=== PATIENT | male | born 1990 | race Caucasian/White ===

== ENCOUNTER 2018-01-01 17:24 | Emergency (ER) | payer MEDICAID ==
[2018-01-01] MEDS ORDERED: KETOROLAC TROMETHAMINE 60 MG/2 ML SDV IM ONE (17:42)
--- NOTE | 2018-01-01 17:44 | ER Document Report ---
ED Medical Screen (RME) - General Chief Complaint: Abdominal Pain Stated Complaint: STOMACH/BACK PAIN Time Seen by Provider: 01/01/18 17:34 Information source: Patient, Relative - Notes: 27-year-old male with a history of right flank pain starting a few hours ago that has since progressed to right lower quadrant pain and now penile pain. Patient states last time he urinated he saw some blood and a split stream. Patient denies any difficulty urinating simply says that everything hurts on his right-hand side. Admits to vomiting but denies blood in his vomit, denies fevers. Admits diaphoresis due to the pain. No history of kidney stones. TRAVEL OUTSIDE OF THE [place] IN LAST 30 DAYS: No - Related Data Allergies/Adverse Reactions: cephalexin [From Keflex] Allergy (Verified 01/01/18 17:24) Penicillins Allergy (Verified 01/01/18 17:24) Sulfa (Sulfonamide Antibiotics) Allergy (Verified 01/01/18 17:24) sulfamethoxazole [From Bactrim] Allergy (Verified 01/01/18 17:24) trimethoprim [From Bactrim] Allergy (Verified 01/01/18 17:24) seafood Allergy (Uncoded 01/01/18 17:24) Past Medical History - General Information source: Patient - Social History Chew tobacco use (# tins/day): No Frequency of alcohol use: None Drug Abuse: None Renal/ Medical History: Denies: Hx Peritoneal Dialysis Psychiatric Medical History: Reports: Hx Bipolar Disorder, Hx Depression Past Surgical History: Reports: Hx Cholecystectomy Review of Systems - Review of Systems Constitutional: See HPI, Diaphoresis Gastrointestinal: See HPI Genitourinary: See HPI Male Genitourinary: See HPI Physical Exam - Vital signs Vitals: Temp Pulse Resp BP Pulse Ox 98.4 F 70 20 131/65 H 98 01/01/18 17:27 01/01/18 17:27 01/01/18 17:27 01/01/18 17:27 01/01/18 17:27 Interpretation: Normal - General General appearance: Alert, Anxious In distress: Moderate Notes: Appears uncomfortable, clutching his groin and the right side of his back. - HEENT Head: Normocephalic, Atraumatic - Respiratory Respiratory status: No respiratory distress - Back Notes: No CVA tenderness to percussion, no rash. Course - Vital Signs Vital signs: Temp Pulse Resp BP Pulse Ox 98.4 F 70 20 131/65 H 98 01/01/18 17:27 01/01/18 17:27 01/01/18 17:27 01/01/18 17:27 01/01/18 17:27
[2018-01-01 18:30] LABS: ABSOLUTE LYMPHOCYTES (AUTO) 2.4 10^3/uL (0.5-4.7); ABSOLUTE MONOCYTES (AUTO) 0.3 10^3/uL (0.1-1.4); ABSOLUTE NEUT (AUTO) 4.2 10^3/uL (1.7-8.2); BASOPHILS % (AUTO) 0.7 % (0-2); EOSINOPHILS % (AUTO) 0.3 % (0-6); HEMATOCRIT 47.2 % (37.9-51.0); HEMOGLOBIN 16.3 g/dL (13.5-17.0); LYMPHOCYTES % (AUTO) 34.5 % (13-45); MEAN CORPUSCULAR HEMOGLOBIN 28.9 pg (27.0-33.4); MEAN CORPUSCULAR HGB CONC 34.5 g/dL (32.0-36.0); MEAN CORPUSCULAR VOLUME 84 fl (80-97); MONOCYTES % (AUTO) 3.7 % (3-13); PLATELET COUNT 202 10^3/uL (150-450); RED BLOOD COUNT 5.64 10^6/uL (4.35-5.55); RED CELL DISTRIBUTION WIDTH 13.5 % (11.5-14.0); SEGMENTED NEUTROPHILS % (AUTO) 60.8 % (42-78); TOTAL CELLS COUNTED % (AUTO) 100 %
--- NOTE | 2018-01-01 18:37 | RADIOLOGY REPORT (SQ) ---
EXAM DESCRIPTION: CT LTD RENAL STONE PROTOCOL ON COMPLETED DATE/TIME: 01/01/2018 6:22 pm REASON FOR STUDY: right flank pain, possible stone COMPARISON: 06/20/2017 TECHNIQUE: CT scan of the abdomen and pelvis performed without intravenous or oral contrast. Images reviewed with lung, soft tissue, and bone windows. Reconstructed coronal and sagittal MPR images revi ewed. All images stored on PACS. All CT scanners at this facility use dose modulation, iterative reconstruction, and/or weight based d osing when appropriate to reduce radiation dose to as low as reasonably achievable (ALARA). [facility]: Dose Right [facility]: CareDose [facility]: Dose Right [facility]: Teradose 4D [facility]: Smart Zapcoder RADIATION DOSE: CT Rad equipment meets quality standard of care and radiation dose reduction techniq ues were employed. CTDIvol: 18.4 mGy. DLP: 1253 mGy-cm.mGy. LIMITATIONS: None. FINDINGS: LOWER CHEST: No significant findings. No nodules or infiltrates. NON-CONTRASTED LIVER, SPLEEN, ADRENALS: Evaluation limited by lack of IV contrast. No identified sign ificant masses. PANCREAS: No masses. No peripancreatic inflammatory changes. GALLBLADDER: Surgically absent. RIGHT KIDNEY AND URETER: No suspicious masses. Assessment limited by lack of IV contrast. No signif icant calcifications. No hydronephrosis or hydroureter. LEFT KIDNEY AND URETER: No suspicious masses. Assessment limited by lack of IV contrast. No signifi cant calcifications. No hydronephrosis or hydroureter. AORTA AND RETROPERITONEUM: No aneurysm. No retroperitoneal masses or adenopathy. BOWEL AND PERITONEAL CAVITY: No obvious masses or inflammatory changes. No free fluid. APPENDIX: Normal. PELVIS, BLADDER, AND ABDOMINAL WALL:No abnormal masses. No free fluid. The bladder is decompressed. BONES: No significant findings. OTHER: No other significant finding. IMPRESSION: No evidence of urolithiasis. No findings to correlate to the patient's reported right f lank pain. COMMENT: Quality ID # [id number]: Final reports with documentation of one or more dose reduction techniques (e.g., Automated exposure control, adjustment of the mA and/or kV according to patient size, use of iterative reconstruction technique) TECHNICAL DOCUMENTATION: JOB ID: [id number] [email or web address]- All Rights Reserved Reading location - IP/workstation name: [email or web address]
[2018-01-01 18:38] LABS: APPEARANCE,URINE SLIGHTLY-CLOUDY; BILIRUBIN,URINE NEGATIVE (NEGATIVE); COLOR,URINE YELLOW; GLUCOSE, URINE NEGATIVE (NEGATIVE); KETONES,URINE NEGATIVE (NEGATIVE); LEUKOCYTE ESTERASE,URINE NEGATIVE (NEGATIVE); NITRITE,URINE NEGATIVE (NEGATIVE); PROTEIN,URINE 30 mg/dL (NEGATIVE); URINE SPECIFIC GRAVITY 1.021
[2018-01-01 18:47] LABS: ANION GAP 15 (5-19); BLOOD UREA NITROGEN 14 mg/dL (7-20); CALCIUM 9.5 mg/dL (8.4-10.2); CARBON DIOXIDE 26 mmol/L (22-30); CHLORIDE 105 mmol/L (98-107); GLUCOSE 132 mg/dL (75-110); POTASSIUM 3.7 mmol/L (3.6-5.0)
--- NOTE | 2018-01-01 19:00 | ER Document Report ---
ED General - General Chief Complaint: Abdominal Pain Stated Complaint: STOMACH/BACK PAIN Time Seen by Provider: 01/01/18 17:34 Notes: 27-year-old male with a history of sharp stabbing right flank pain starting a few hours ago that has since progressed to right lower quadrant pain and now penile pain. Patient states last time he urinated he saw some blood and a split stream. Patient denies any difficulty urinating simply says that everything hurts on his right-hand side. Admits to vomiting but denies blood in his vomit, denies fevers. Admits diaphoresis due to the pain. No history of kidney stones. TRAVEL OUTSIDE OF THE [place] IN LAST 30 DAYS: No - Related Data Allergies/Adverse Reactions: cephalexin [From Keflex] Allergy (Verified 01/01/18 17:24) Penicillins Allergy (Verified 01/01/18 17:24) Sulfa (Sulfonamide Antibiotics) Allergy (Verified 01/01/18 17:24) sulfamethoxazole [From Bactrim] Allergy (Verified 01/01/18 17:24) trimethoprim [From Bactrim] Allergy (Verified 01/01/18 17:24) seafood Allergy (Uncoded 01/01/18 17:24) Past Medical History - General Information source: Patient - Social History Smoking Status: Never Smoker Chew tobacco use (# tins/day): No Frequency of alcohol use: None Drug Abuse: None Family History: Reviewed & Not Pertinent Patient has suicidal ideation: No Patient has homicidal ideation: No Renal/ Medical History: Denies: Hx Peritoneal Dialysis Psychiatric Medical History: Reports: Hx Bipolar Disorder, Hx Depression Past Surgical History: Reports: Hx Cholecystectomy Review of Systems - Review of Systems Constitutional: See HPI, Diaphoresis EENT: No symptoms reported Cardiovascular: No symptoms reported Respiratory: No symptoms reported Gastrointestinal: See HPI, Abdominal pain, Nausea, Vomiting Genitourinary: See HPI, Dysuria, Flank pain, Hematuria Male Genitourinary: See HPI, Other - Penile pain. -: Yes All other systems reviewed and negative Physical Exam - Vital signs Vitals: Temp Pulse Resp BP Pulse Ox 98.4 F 70 20 131/65 H 98 01/01/18 17:27 01/01/18 17:27 01/01/18 17:27 01/01/18 17:27 01/01/18 17:27 Interpretation: Normal - Notes Notes: GENERAL: Alert, appears uncomfortable, rocking back and forth in wheelchair, clutching the right side of his groin, diaphoretic, eventually stands up and paces around the room. HEAD: Normocephalic, atraumatic EYES: Pupils equal, round and reactive to light, extraocular movements intact. ENT: Oral mucosa moist, tongue midline. NECK: Full range of motion, supple, trachea midline. LUNGS: Clear to auscultation bilaterally, no wheezes, rales or rhonchi, no respiratory distress. HEART: Regular rate and rhythm, no murmurs, gallops, rubs. ABDOMEN: Soft, nontender, nondistended, bowel sounds present in all 4 quadrants. EXTREMITIES: Moves all 4 extremities spontaneously, no edema, no cyanosis. NEUROLOGICAL: Alert and oriented x3, normal speech. PSYCH: Anxious and uncomfortable. SKIN: Warm, diaphoretic, normal turgor, no rashes or lesions noted, no vesicular rash on the right flank. : normal external male genitalia, no discharge, no lesions, no rashes. No tenderness to palpation. Testes descended bilaterally. Course - Re-evaluation Re-evalutation: 01/01/18 19:00 CBC unremarkable, BMP shows minimal abnormalities including slightly elevated sodium 146 and nonfasting glucose elevated at 132, urinalysis shows large blood and no evidence of infection. Of note on gross examination patient did urinate out a stone that was then visible in his urine specimen. This was not commented on by the laboratory. Stone appeared to be approximately 2 mm. Patient is now able to urinate without a split stream, denies any further difficulty with urination, states his pain is significantly improved with the Toradol. 01/01/18 20:05 Patient did end up needing a single dose of Vicodin while he was here. Gonorrhea and chlamydia is negative, discharged home. - Vital Signs Vital signs: Temp Pulse Resp BP Pulse Ox 97.6 F 84 16 126/75 H 98 01/01/18 19:48 01/01/18 19:48 01/01/18 19:48 01/01/18 19:48 01/01/18 19:48 - Laboratory Result Diagrams: 01/01/18 18:04 01/01/18 18:04 Laboratory results interpreted by me: 05/01/01/18 01/01/18 18:04 18:04 18:04 RBC 5.64 H Sodium 146.0 H Glucose 132 H Urine Protein 30 H Urine Blood LARGE H Urine Urobilinogen 2.0 H Discharge - Discharge Clinical Impression: Ureterolithiasis Condition: Stable Disposition: HOME, SELF-CARE Additional Instructions: Kidney Stone You are passing or have passed a kidney stone. These stones are usually due to increased calcium or uric acid concentrations in your urine. Stones within the kidney itself are not painful. The pain occurs as the stone leaves the kidney to pass down the long tube, called the ureter, leading to the bladder. Drink three or four quarts of fluids per day. You will be given pain medication (if needed) and urine strainers. Return if pain or vomiting become severe, if you develop a high fever, if you are unable to pass your urine, or if other unusual symptoms occur. You have already passed her stone. If your pain becomes much more severe please return. Your CAT scan did not show any stones. Your urine did not show any infections. Your other tests were negative. No infections or diseases were found. Prescriptions: Ibuprofen 800 mg PO TIDP #30 tablet Phenazopyridine HCl [Pyridium 200 mg Tablet] 200 mg PO TID #7 tablet
[2018-01-01] MEDS ORDERED: HYDROCODONE/ACETAMINOPHEN 5-325 MG TABLET PO ONE (19:11)
[2018-01-01 19:50] VITALS: BP 126/75
[2018-01-01] MEDS: HYDROCODONE/ACETAMINOPHEN 5-325 MG (6 TAB/ER DISP) PO PRN ×2 (19:58→19:59)
[2018-01-01 20:00] LABS: CHLAM PCR NOT DETECTED (NOT DETECT); GON PCR NOT DETECTED (NOT DETECT)
== END 2018-01-01 20:10 | disposition home or self-care (01) ==
LOC: ER 17:24
DX: N20.1 Calculus of ureter (principal); R31.0 Gross hematuria; R10.31 Right lower quadrant pain; R11.2 Nausea with vomiting, unspecified; N48.89 Other specified disorders of penis; R61 Generalized hyperhidrosis; Z88.1 Allergy status to other antibiotic agents; Z88.0 Allergy status to penicillin; Z88.2 Allergy status to sulfonamides; Z91.013 Allergy to seafood
CPT/HCPCS: 99284; 96372; 36415; 85025; 80048; 81001; 87491; 87591; 76380; J1885

== ENCOUNTER 2018-05-06 22:12 | Emergency (ER) | payer MEDICAID ==
--- NOTE | 2018-05-06 22:47 | ER Document Report ---
ED General - General Chief Complaint: Suicidal Ideation Stated Complaint: PSYCH EVAL Time Seen by Provider: 05/06/18 22:30 Mode of Arrival: Ambulatory Information source: Patient, Emergency Med Personnel, [facility] Records Notes: 28-year-old male with bipolar disorder, depression, hypothyroidism, degenerative disc disease presents with mobile crisis with suicidal ideation. Patient states that he recently lost his home and [place] and moved back here to live with his parents and has been undergoing a lot of stress at home. Patient has not been able to afford his normal medications which include Xanax, Abilify, Depakote, gabapentin, levothyroxine, Protonix, trazodone. Patient has a plan to cut himself or hang himself. Patient also admits to having homicidal ideation with wanting to hurt 1 of his siblings. He states where he is staying his parents call him "Faggot" and that the mother's boyfriend has been making passes at him.. He states that he has had prior similar symptoms. He has had previous attempts of suicide. TRAVEL OUTSIDE OF THE [place] IN LAST 30 DAYS: No - HPI Onset: Other Quality of pain: No pain Severity: None Associated symptoms: None Exacerbated by: Denies Relieved by: Denies Similar symptoms previously: Yes Recently seen / treated by doctor: No - Related Data Allergies/Adverse Reactions: cephalexin [From Keflex] Allergy (Verified 01/01/18 17:24) Penicillins Allergy (Verified 01/01/18 17:24) Sulfa (Sulfonamide Antibiotics) Allergy (Verified 01/01/18 17:24) sulfamethoxazole [From Bactrim] Allergy (Verified 01/01/18 17:24) trimethoprim [From Bactrim] Allergy (Verified 01/01/18 17:24) seafood Allergy (Uncoded 01/01/18 17:24) Past Medical History - General Information source: Patient, [facility] Records - Social History Smoking Status: Never Smoker Frequency of alcohol use: None Drug Abuse: None Lives with: Family, Spouse/Significant other Family History: Reviewed & Not Pertinent Patient has suicidal ideation: Yes Patient has homicidal ideation: Yes Renal/ Medical History: Denies: Hx Peritoneal Dialysis Psychiatric Medical History: Reports: Hx Bipolar Disorder, Hx Depression Past Surgical History: Reports: Hx Cholecystectomy Review of Systems - Review of Systems Notes: REVIEW OF SYSTEMS: CONSTITUTIONAL : Denies fever, chills, or sweats. Denies recent illness. Denies weight loss, recent hospitalizations. EENT: Denies visual changes, eye pain. Denies sore throat, oral lesions, difficulty swallowing. CARDIOVASCULAR: Denies chest pain. Denies palpitations. Denies lower extremity edema. RESPIRATORY: Denies cough. Denies shortness of breath, wheezing. GASTROINTESTINAL: Denies abdominal pain or distention. Denies nausea, vomiting , or diarrhea. Denies blood in vomitus, stools, or per rectum. Denies black, tarry stools. Denies constipation. GENITOURINARY: Denies difficulty urinating, painful urination, frequency, blood in urine, testicular pain or penile discharge. MUSCULOSKELETAL: Denies back or neck pain or stiffness. Denies joint pain or swelling. SKIN: Denies rash, lesions or sores. HEMATOLOGIC : Denies easy bruising or bleeding. LYMPHATIC: Denies swollen glands. NEUROLOGICAL: Denies confusion or altered mental status. Denies loss of consciousness. Denies dizziness or lightheadedness. Denies headache. Denies weakness or paralysis. Denies problems difficulty with ambulation, slurred speech. Denies sensory loss, numbness, or tingling. Denies seizures. PSYCHIATRIC: Admits to suicidal and homicidal. Denies any visual or auditory hallucination. Physical Exam - Vital signs Vitals: Temp Pulse Resp BP Pulse Ox 98.6 F 83 20 137/88 H 100 05/06/18 22:22 05/06/18 22:22 05/06/18 22:22 05/06/18 22:22 05/06/18 22:22 Interpretation: Hypertensive - Notes Notes: PHYSICAL EXAMINATION: GENERAL: Well-appearing, well-nourished and in no acute distress. HEAD: Atraumatic, normocephalic. EYES: Pupils equal round and reactive to light, extraocular movements intact, sclera anicteric, conjunctiva are normal. ENT: Nares patent, oropharynx clear without exudates. Moist mucous membranes. NECK: Normal range of motion, supple without lymphadenopathy LUNGS: Breath sounds clear to auscultation bilaterally and equal. No wheezes rales or rhonchi. HEART: Regular rate and rhythm without murmurs ABDOMEN: Soft, nontender, nondistended abdomen. No guarding, no rebound. No masses appreciated. Musculoskeletal: Normal range of motion, no pitting or edema. No cyanosis. NEUROLOGICAL: Cranial nerves grossly intact. Normal speech, normal gait. Normal sensory, motor exams PSYCH: normal affect. Admits to suicidal and homicidal SKIN: Warm, Dry, normal turgor, no rashes or lesions noted. Course - Re-evaluation Re-evalutation: Laboratory 05/06/18 05/06/18 05/06/18 23:02 23:02 23:02 WBC 8.5 RBC 5.66 H Hgb 16.4 Hct 47.2 MCV 84 MCH 29.0 MCHC 34.8 RDW 13.3 Plt Count 204 Seg Neutrophils % 68.8 Lymphocytes % 25.2 Monocytes % 5.2 Eosinophils % 0.2 Basophils % 0.6 Absolute Neutrophils 5.9 Absolute Lymphocytes 2.1 Absolute Monocytes 0.4 Absolute Eosinophils 0.0 Absolute Basophils 0.1 Sodium 141.9 Potassium 4.4 Chloride 103 Carbon Dioxide 28 Anion Gap 11 BUN 10 Creatinine 0.68 Est GFR ( Amer) > 60 Est GFR (Non-Af Amer) > 60 Glucose 83 Calcium 9.2 Total Bilirubin 1.0 Direct Bilirubin 0.3 Neonat Total Bilirubin Not Reportable Neonat Direct Bilirubin Not Reportable Neonat Indirect Bili Not Reportable AST 34 ALT 59 Alkaline Phosphatase 97 Total Protein 7.4 Albumin 4.5 Urine Color DARK YELLOW Urine Appearance CLEAR Urine pH 5.0 Ur Specific [place] 1.032 Urine Protein 30 H Urine Glucose (UA) NEGATIVE Urine Ketones NEGATIVE Urine Blood NEGATIVE Urine Nitrite NEGATIVE Urine Bilirubin NEGATIVE Urine Urobilinogen 2.0 H Ur Leukocyte Esterase NEGATIVE Urine WBC (Auto) 1 Urine RBC (Auto) 0 Urine Mucus (Auto) MANY Urine Ascorbic Acid NEGATIVE Salicylates < 1.0 L Urine Opiates Screen Urine Methadone Screen Acetaminophen < 10 L Ur Barbiturates Screen Ur Phencyclidine Scrn Ur Amphetamines Screen U Benzodiazepines Scrn Urine Cocaine Screen U Marijuana (THC) Screen Serum Alcohol < 10 05/06/18 23:02 WBC RBC Hgb Hct MCV MCH MCHC RDW Plt Count Seg Neutrophils % Lymphocytes % Monocytes % Eosinophils % Basophils % Absolute Neutrophils Absolute Lymphocytes Absolute Monocytes Absolute Eosinophils Absolute Basophils Sodium Potassium Chloride Carbon Dioxide Anion Gap BUN Creatinine Est GFR ( Amer) Est GFR (Non-Af Amer) Glucose Calcium Total Bilirubin Direct Bilirubin Neonat Total Bilirubin Neonat Direct Bilirubin Neonat Indirect Bili AST ALT Alkaline Phosphatase Total Protein Albumin Urine Color Urine Appearance Urine pH Ur Specific [place] Urine Protein Urine Glucose (UA) Urine Ketones Urine Blood Urine Nitrite Urine Bilirubin Urine Urobilinogen Ur Leukocyte Esterase Urine WBC (Auto) Urine RBC (Auto) Urine Mucus (Auto) Urine Ascorbic Acid Salicylates Urine Opiates Screen NEGATIVE Urine Methadone Screen NEGATIVE Acetaminophen Ur Barbiturates Screen NEGATIVE Ur Phencyclidine Scrn NEGATIVE Ur Amphetamines Screen NEGATIVE U Benzodiazepines Scrn NEGATIVE Urine Cocaine Screen NEGATIVE U Marijuana (THC) Screen NEGATIVE Serum Alcohol 05/07/18 00:56 28-year-old male with bipolar disorder, depression, hypothyroidism, degenerative disc disease presents with mobile crisis with suicidal ideation. Patient states that he recently lost his home and [place] and moved back here to live with his parents and has been undergoing a lot of stress at home. Patient has not been able to afford his normal medications which include Xanax, Abilify, Depakote, gabapentin, levothyroxine, Protonix, trazodone. Patient has a plan to cut himself or hang himself. Patient also admits to having homicidal ideation with wanting to hurt 1 of his siblings. He states where he is staying his parents call him "Faggot" and that the mother's boyfriend has been making "passes" at him.. He states that he has had prior similar symptoms. He has had previous attempts of suicide. Patient was seen by myself upon arrival. Vital signs were reviewed. Patient is afebrile, normotensive and not hypoxic. Patient does not appear toxic or dehydrated. They are in no acute distress. Previous medical records and nursing notes reviewed. Patient has been cooperative during his ED course. He is cleared for psych evaluation. Patient was given his home dose of trazodone. - Vital Signs Vital signs: Temp Pulse Resp BP Pulse Ox 98.6 F 83 20 137/88 H 100 05/06/18 22:22 05/06/18 22:22 05/06/18 22:22 05/06/18 22:22 05/06/18 22:22 - Laboratory Result Diagrams: 05/06/18 23:02 05/06/18 23:02 Laboratory results interpreted by me: 05/06/18 05/06/18 05/06/18 23:02 23:02 23:02 RBC 5.66 H Urine Protein 30 H Urine Urobilinogen 2.0 H Salicylates < 1.0 L Acetaminophen < 10 L - EKG Interpretation by Me EKG shows normal: Sinus rhythm Rate: Normal Rhythm: NSR When compared to previous EKG there are: No significant change Discharge - Discharge Clinical Impression: Suicidal ideation, Homicidal ideation, History of bipolar disorder Condition: Good
[2018-05-06 23:16] LABS: ABSOLUTE BASOPHILS # (AUTO) 0.1 10^3/uL (0.0-0.2); ABSOLUTE LYMPHOCYTES (AUTO) 2.1 10^3/uL (0.5-4.7); ABSOLUTE MONOCYTES (AUTO) 0.4 10^3/uL (0.1-1.4); ABSOLUTE NEUT (AUTO) 5.9 10^3/uL (1.7-8.2); BASOPHILS % (AUTO) 0.6 % (0-2); EOSINOPHILS % (AUTO) 0.2 % (0-6); HEMATOCRIT 47.2 % (37.9-51.0); HEMOGLOBIN 16.4 g/dL (13.5-17.0); LYMPHOCYTES % (AUTO) 25.2 % (13-45); MEAN CORPUSCULAR HGB CONC 34.8 g/dL (32.0-36.0); MEAN CORPUSCULAR VOLUME 84 fl (80-97); MONOCYTES % (AUTO) 5.2 % (3-13); PLATELET COUNT 204 10^3/uL (150-450); RED BLOOD COUNT 5.66 10^6/uL (4.35-5.55); RED CELL DISTRIBUTION WIDTH 13.3 % (11.5-14.0); SEGMENTED NEUTROPHILS % (AUTO) 68.8 % (42-78); TOTAL CELLS COUNTED % (AUTO) 100 %; WHITE BLOOD COUNT 8.5 10^3/uL (4.0-10.5)
[2018-05-06 23:24] LABS: APPEARANCE,URINE CLEAR; BILIRUBIN,URINE NEGATIVE (NEGATIVE); GLUCOSE, URINE NEGATIVE (NEGATIVE); KETONES,URINE NEGATIVE (NEGATIVE); LEUKOCYTE ESTERASE,URINE NEGATIVE (NEGATIVE); NITRITE,URINE NEGATIVE (NEGATIVE); PROTEIN,URINE 30 mg/dL (NEGATIVE); URINE SPECIFIC GRAVITY 1.032
[2018-05-06] MEDS: TRAZODONE HCL 50 MG TABLET PO SCH (23:25)
[2018-05-06 23:26] LABS: COLOR,URINE DARK YELLOW
[2018-05-06 23:30] LABS: ALANINE AMINOTRANSFERASE 59 U/L (21-72); ALBUMIN 4.5 g/dL (3.5-5.0); ALKALINE PHOSPHATASE 97 U/L (38-126); ANION GAP 11 (5-19); ASPARTATE AMINO TRANSFERASE 34 U/L (17-59); BILIRUBIN,DIRECT 0.3 mg/dL (0.0-0.4); BLOOD UREA NITROGEN 10 mg/dL (7-20); CALCIUM 9.2 mg/dL (8.4-10.2); CARBON DIOXIDE 28 mmol/L (22-30); CHLORIDE 103 mmol/L (98-107); GLUCOSE 83 mg/dL (75-110); POTASSIUM 4.4 mmol/L (3.6-5.0); SODIUM 141.9 mmol/L (137-145); TOTAL PROTEIN 7.4 g/dL (6.3-8.2)
[2018-05-06 23:31] LABS: ACETAMINOPHEN < 10 ug/mL (10-30); ALCOHOL < 10 mg/dL (NONE DETECTED); SALICYLATE < 1.0 mg/dL (2.0-20.0)
[2018-05-06 23:38] LABS: URINE AMPHETAMINES SCREEN NEGATIVE; URINE BARBITURATES SCREEN NEGATIVE; URINE BENZODIAZEPINES SCREEN NEGATIVE; URINE COCAINE SCREEN NEGATIVE; URINE MARIJUANA (THC) SCREEN NEGATIVE; URINE METHADONE SCREEN NEGATIVE; URINE PHENCYCLIDINE SCREEN NEGATIVE
[2018-05-07] MEDS: TRAZODONE HCL 50 MG TABLET PO SCH (07:58)
[2018-05-07 08:38] VITALS: BP 125/77
--- NOTE | 2018-05-07 09:45 | ER Document Report ---
Doctor's Note Notes: 05/07/18 09:43 28-year-old male with bipolar disorder, depression, hypothyroidism, degenerative disc disease who presents with suicidal homicidal ideations. Patient is here from [place] staying with his parents. He is also here with his . Vital signs and laboratory values as recorded. Psychology/ psychiatry team is seen and assessed the patient and do not feel that the patient meets IVC criteria. They would like to discharge the patient with [facility] who will fruit picker the patient from the emergency department. They would like us to provide 1 week of medications upon discharge. Patient is calm and cooperative in no acute distress. Patient's significant other is very calm and agrees with this plan. We will make sure we also called the patient's family to make sure that they are comfortable with this patient going home. Patient denies any suicidal homicidal ideations at this time. We have restarted the patient's medications here at this facility.
[2018-05-07] MEDS ORDERED: GABAPENTIN 300 MG CAPSULE PO ONE (11:20)
[2018-05-07] MEDS ORDERED: ARIPIPRAZOLE 5 MG TABLET PO ONE (11:20)
[2018-05-07] MEDS ORDERED: DIVALPROEX SODIUM 500 MG TAB.SR.24H PO ONE (11:20)
[2018-05-07] MEDS ORDERED: LEVOTHYROXINE SODIUM 0.075 MG TABLET PO ONE (11:21)
--- NOTE | 2018-05-07 12:42 | EKG REPORT ---
SEVERITY:- NORMAL ECG - SINUS RHYTHM : Confirmed by: Shriley Knight MD 07-May-2018 12:41:47
--- NOTE | 2018-05-10 17:53 | PSYCHOLOGICAL NOTE ---
Psych Note - Psych Note Psych Note: Reason for consult: suicidal ideation Consent for permissions: Мария Bloom, mother, pt comes to ed michaela kimble SI of cutting self. pt reports hx depression and bipolar, reports has been off his medications for 2 months since moving to [place]. aaox3. cooperative. denies HI. denies drug/alcohol use. support system is who is at bedside. Patient states that he is not suicidal or homicidal. Patient states that he just had a "meltdown" while living with his parents. His definition of meltdown was that he was cursing, yelling but no threats to harm himself or other people. Patient reports that he moved in with his parents after losing his home in [place]. Patient reports that while his mother is accepting of his sexual orientation, his sister is not accepting of his sexual orientation and that is a bone of contention for the family overall. However, patient denies that he is at risk by living with his family. Patient states that he would not kill himself because he "has too much" to live for and loves his nieces and nephews. Patient states that this episode occurred simply because he ran out of his medications due to moving to [place] and his medicaid has not transferred over. Patient's Mom states that she is not afraid of her son and that he can stay with her upon discharge. Patient's Mom states that there is some tension between patient and his sister but she has never heard him threaten anyone, heated arguments sometimes but no threats. Patient is alert and oriented to person, place, time and circumstance. Mood is euthymic. Patient denies suicidal ideation. Patient denies homicidal ideation. Delusions are absent and behaviors congruent with an intact reality based presentation i.e. organized and linear though processes. Eye Contact was well maintained. Intellectual abilities appear to be within average range. Attention and concentration are fair. Insight, impulse control is good. No Medication Recommendations at this time Diagnosis 296.41 (F31.11) Bipolar I Disorder, Mild per patient report Impression/Plan: Patient is cleared from acute psychiatric services. Patient denies suicide ideation. Patient denies homicidal ideation. Patient engages in forward thinking in attempting to get his resources in place so that he can stay current on his medication. Patient has a supportive and mother. Dr. Novak was consulted in the care and management of this patient. attending physician is in agreement with recommendations and disposition.
== END 2018-05-07 11:53 | disposition home or self-care (01) ==
LOC: ER 22:12
DX: R45.851 Suicidal ideations (principal); R45.850 Homicidal ideations; F31.11 Bipolar disorder, current episode manic without psychotic features, mild; Z88.0 Allergy status to penicillin; Z88.2 Allergy status to sulfonamides
CPT/HCPCS: 36415; 80053; 80307; 81001; 85025; 93005; 93010; 99285

== ENCOUNTER 2018-05-19 16:20 | Emergency (ER) | payer MEDICAID ==
[2018-05-19] MEDS ORDERED: ONDANSETRON 4 MG TAB.RAPDIS PO ONE (17:14)
[2018-05-19] MEDS ORDERED: NAPROXEN 250 MG TABLET PO ONE (17:14)
[2018-05-19] MEDS ORDERED: DIPHENHYDRAMINE HCL 50 MG CAPSULE PO ONE (17:14)
[2018-05-19] MEDS ORDERED: PROCHLORPERAZINE MALEATE 10 MG TABLET PO ONE (17:14)
--- NOTE | 2018-05-19 17:15 | ER Document Report ---
ED Medical Screen (RME) - General Chief Complaint: Dizziness Stated Complaint: HEADACHE Time Seen by Provider: 05/19/18 17:09 Notes: 28-year-old male patient with underlying bipolar orders. Reports waking up this morning feeling nauseous, lightheaded, and weak and drained. He developed a headache, he states that there is no photophobia but he keeps his hands over his eyes. He states that his throat feels like there is something in there blocking it. He does not have a history of migraine headache. I have greeted and performed a rapid initial assessment of this patient. A comprehensive ED assessment and evaluation of the patient, analysis of test results and completion of the medical decision making process will be conducted by additional ED providers. TRAVEL OUTSIDE OF THE [place] IN LAST 30 DAYS: No - Related Data Allergies/Adverse Reactions: cephalexin [From Keflex] Allergy (Verified 05/19/18 16:21) Penicillins Allergy (Verified 05/19/18 16:21) Sulfa (Sulfonamide Antibiotics) Allergy (Verified 05/19/18 16:21) sulfamethoxazole [From Bactrim] Allergy (Verified 05/19/18 16:21) trimethoprim [From Bactrim] Allergy (Verified 05/19/18 16:21) seafood Allergy (Uncoded 01/01/18 17:24) Past Medical History - Social History Chew tobacco use (# tins/day): No Frequency of alcohol use: None Drug Abuse: None Renal/ Medical History: Denies: Hx Peritoneal Dialysis Psychiatric Medical History: Reports: Hx Bipolar Disorder, Hx Depression - anxiety, PTSD Past Surgical History: Reports: Hx Cholecystectomy Physical Exam - Vital signs Vitals: Temp Pulse Resp BP Pulse Ox 97.8 F 71 16 119/75 98 05/19/18 16:25 05/19/18 16:25 05/19/18 16:25 05/19/18 16:25 05/19/18 16:25 Course - Vital Signs Vital signs: Temp Pulse Resp BP Pulse Ox 97.8 F 71 16 119/75 98 05/19/18 16:25 05/19/18 16:25 05/19/18 16:25 05/19/18 16:25 05/19/18 16:25
[2018-05-19 17:34] LABS: ABSOLUTE LYMPHOCYTES (AUTO) 1.9 10^3/uL (0.5-4.7); ABSOLUTE MONOCYTES (AUTO) 0.5 10^3/uL (0.1-1.4); ABSOLUTE NEUT (AUTO) 4.5 10^3/uL (1.7-8.2); BASOPHILS % (AUTO) 0.6 % (0-2); EOSINOPHILS % (AUTO) 0.3 % (0-6); HEMATOCRIT 45.9 % (37.9-51.0); LYMPHOCYTES % (AUTO) 27.2 % (13-45); MEAN CORPUSCULAR HEMOGLOBIN 29.2 pg (27.0-33.4); MEAN CORPUSCULAR HGB CONC 34.9 g/dL (32.0-36.0); MEAN CORPUSCULAR VOLUME 84 fl (80-97); PLATELET COUNT 191 10^3/uL (150-450); RED BLOOD COUNT 5.47 10^6/uL (4.35-5.55); RED CELL DISTRIBUTION WIDTH 13.6 % (11.5-14.0); SEGMENTED NEUTROPHILS % (AUTO) 64.9 % (42-78); TOTAL CELLS COUNTED % (AUTO) 100 %
[2018-05-19 18:05] LABS: ALANINE AMINOTRANSFERASE 58 U/L (21-72); ALBUMIN 4.5 g/dL (3.5-5.0); ALKALINE PHOSPHATASE 100 U/L (38-126); ANION GAP 8 (5-19); ASPARTATE AMINO TRANSFERASE 44 U/L (17-59); BILIRUBIN,DIRECT 0.5 mg/dL (0.0-0.4); BILIRUBIN,TOTAL 1.2 mg/dL (0.2-1.3); BLOOD UREA NITROGEN 11 mg/dL (7-20); CALCIUM 9.8 mg/dL (8.4-10.2); CARBON DIOXIDE 29 mmol/L (22-30); CHLORIDE 106 mmol/L (98-107); GLUCOSE 100 mg/dL (75-110); POTASSIUM 4.4 mmol/L (3.6-5.0); SODIUM 142.9 mmol/L (137-145); TOTAL PROTEIN 7.5 g/dL (6.3-8.2)
--- NOTE | 2018-05-19 19:43 | ER Document Report ---
ED General - General Chief Complaint: Dizziness Stated Complaint: HEADACHE Time Seen by Provider: 05/19/18 17:09 Notes: Patient is a 28-year-old male who presents with multiple complaints. Patient is complaining of sore throat, headache, fatigue, body aches, that have been ongoing for the past 24 hours. Headache is described as a mild, intermittent, throbbing headache. Gradual in onset, currently gone. Nothing improves or worsens his symptoms. Denies a history of similar symptoms in the past. No known sick contacts. No fever. No cough, sputum production, abdominal pain, vomiting or diarrhea. No focal weakness or numbness. Denies any headache currently. He has not seen his general doctor regarding today's concerns. TRAVEL OUTSIDE OF THE [place] IN LAST 30 DAYS: No - Related Data Allergies/Adverse Reactions: cephalexin [From Keflex] Allergy (Verified 05/19/18 16:21) Penicillins Allergy (Verified 05/19/18 16:21) Sulfa (Sulfonamide Antibiotics) Allergy (Verified 05/19/18 16:21) sulfamethoxazole [From Bactrim] Allergy (Verified 05/19/18 16:21) trimethoprim [From Bactrim] Allergy (Verified 05/19/18 16:21) seafood Allergy (Uncoded 01/01/18 17:24) Past Medical History - General Information source: Patient - Social History Smoking Status: Never Smoker Chew tobacco use (# tins/day): No Frequency of alcohol use: None Drug Abuse: None Lives with: Spouse/Significant other Family History: Reviewed & Not Pertinent Patient has suicidal ideation: No Patient has homicidal ideation: No Renal/ Medical History: Denies: Hx Peritoneal Dialysis Psychiatric Medical History: Reports: Hx Bipolar Disorder, Hx Depression - anxiety, PTSD Past Surgical History: Reports: Hx Cholecystectomy Review of Systems - Review of Systems Notes: Constitutional: Negative for fever. Positive for fatigue HENT: Positive for sore throat. Eyes: Negative for visual changes. Cardiovascular: Negative for chest pain. Respiratory: Negative for shortness of breath. Gastrointestinal: Negative for abdominal pain, vomiting or diarrhea. Genitourinary: Negative for dysuria. Musculoskeletal: Negative for back pain. Skin: Negative for rash. Neurological: Negative for headaches, weakness or numbness. 10 point ROS negative except as marked above and in HPI. Physical Exam - Vital signs Vitals: Temp Pulse Resp BP Pulse Ox 97.8 F 71 16 119/75 98 05/19/18 16:25 05/19/18 16:25 05/19/18 16:25 05/19/18 16:25 05/19/18 16:25 Interpretation: Normal Notes: PHYSICAL EXAMINATION: GENERAL: Well-appearing, well-nourished and in no acute distress. HEAD: Atraumatic, normocephalic. EYES: Pupils equal round and reactive to light, extraocular movements intact, sclera anicteric, conjunctiva are normal. ENT: nares patent, oropharynx clear without exudates. Moderately dry mucous membranes. NECK: Normal range of motion, supple without lymphadenopathy LUNGS: Breath sounds clear to auscultation bilaterally and equal. No wheezes rales or rhonchi. HEART: Regular rate and rhythm without murmurs ABDOMEN: Soft, nontender, normoactive bowel sounds. No guarding, no rebound. No masses appreciated. EXTREMITIES: Normal range of motion, no pitting or edema. No cyanosis. NEUROLOGICAL: Face symmetric. Tongue protrudes midline. Extraocular motions intact. Pupils are 2 mm and equally reactive. Normal speech, normal gait. 5 out of 5 strength in both the distal and proximal upper and lower extremities bilaterally. Sensation is grossly intact throughout. Finger to nose testing normal. Pronator drift normal. PSYCH: Normal mood, normal affect. SKIN: Warm, Dry, normal turgor, no rashes or lesions noted. Course - Re-evaluation Re-evalutation: 05/19/18 19:41 Patient presents with multiple vague complaints that did not appear to be concerning for any acute life-threatening pathology. Vitals are within normal limits at triage and at time of discharge. Physical examination is unremarkable. Patient has tolerated oral intake without difficulty. Patient was not noted to be in distress at any point during their ER visit. Labs, vitals, exam all very reassuring. Suspect the patient may have a viral prodrome. At this time, based on the reassuring evaluation, I do not suspect an acute HI, pulmonary embolus, aortic dissection, acute intra-abdominal pathology, stroke, or sepsis.Will discharge with return precautions and follow- up recommendations. Verbal discharge instructions given a the bedside and opportunity for questions given. Medication warnings reviewed. Patient is in agreement with this plan and has verbalized understanding of return precautions and the need for primary care follow-up in the next 24-72 hours. - Vital Signs Vital signs: Temp Pulse Resp BP Pulse Ox 98.6 F 60 16 106/66 100 05/19/18 19:46 05/19/18 19:46 05/19/18 16:25 05/19/18 19:46 05/19/18 19:46 - Laboratory Result Diagrams: 05/19/18 17:22 05/19/18 17:22 Laboratory results interpreted by me: 05/19/18 17:22 Direct Bilirubin 0.5 H Discharge - Discharge Clinical Impression: Sore throat, Lightheadedness, General weakness, Body aches Condition: Good Disposition: HOME, SELF-CARE Additional Instructions: I would recommend that you take Tylenol 1000 mg every 6 hours as needed for body aches and fatigue. Take famotidine 20 mg twice daily which can be purchased directly [id number] for the throat discomfort that you have been having for quite some time. Please follow-up with your primary care doctor within the next 24-48 hours. Please return to the emergency room immediately if you experience any concerning symptoms including high fevers, severe headache, chest pain, difficulty breathing, abdominal pain, slurred speech, numbness or weakness in your arms or legs, or any other symptom that concerns you.
[2018-05-19 19:48] VITALS: BP 106/66
== END 2018-05-19 19:49 | disposition home or self-care (01) ==
LOC: ER 16:20
DX: J02.9 Acute pharyngitis, unspecified (principal); R42 Dizziness and giddiness; R53.1 Weakness; M79.10 Myalgia, unspecified site; Z90.49 Acquired absence of other specified parts of digestive tract; Z88.3 Allergy status to other anti-infective agents; Z88.2 Allergy status to sulfonamides; Z88.0 Allergy status to penicillin; Z91.013 Allergy to seafood
CPT/HCPCS: 99284; 36415; 87070; 87880; 85025; 80053; S0119; S0183

== ENCOUNTER 2018-06-26 23:13 | Emergency (ER) | payer MEDICAID ==
--- NOTE | 2018-06-27 00:04 | ER Document Report ---
ED General - General Chief Complaint: Ear Pain Stated Complaint: EAR PAIN, NECK/EAR SWELLING Time Seen by Provider: 06/26/18 23:47 Notes: Patient is a 28-year-old male who presents to the emergency department with left ear pain which radiates to his left jaw and down his neck. He states that he has trouble hearing people from far away. He describes the pain as a throbbing pain. At home he tried some "home remedies," but nothing has helped. Denies fever, dizziness, ear drainage, or headache. His past medical history includes hypothyroidism, anxiety and bipolar disorder. TRAVEL OUTSIDE OF THE [place] IN LAST 30 DAYS: No - Related Data Allergies/Adverse Reactions: cephalexin [From Keflex] Allergy (Verified 05/19/18 16:21) Penicillins Allergy (Verified 05/19/18 16:21) Sulfa (Sulfonamide Antibiotics) Allergy (Verified 05/19/18 16:21) sulfamethoxazole [From Bactrim] Allergy (Verified 05/19/18 16:21) trimethoprim [From Bactrim] Allergy (Verified 05/19/18 16:21) seafood Allergy (Uncoded 01/01/18 17:24) Past Medical History - General Information source: Patient - Social History Smoking Status: Current Every Day Smoker Frequency of alcohol use: None Drug Abuse: None Family History: Reviewed & Not Pertinent Renal/ Medical History: Denies: Hx Peritoneal Dialysis Psychiatric Medical History: Reports: Hx Bipolar Disorder, Hx Depression - anxiety, PTSD Past Surgical History: Reports: Hx Cholecystectomy Review of Systems - Review of Systems Notes: REVIEW OF SYSTEMS: CONSTITUTIONAL : Denies recent illness. Denies recent unintentional weight loss. Denies fever, chills, or sweats. EENT: See HPI CARDIOVASCULAR: Denies chest pain. RESPIRATORY: Denies shortness of breath, cough, congestion, difficulty breathing , or wheezing. GASTROINTESTINAL: Denies nausea, vomiting, and diarrhea. Denies abdominal pain. Denies constipation. GENITOURINARY: Denies difficulty urinating, burning, blood in urine, urgency or frequency. MUSCULOSKELETAL: Denies neck and back pain. Denies joint pain or swelling. SKIN: Denies rash, itchiness, or lesions HEMATOLOGIC : Denies easy bruising or bleeding. LYMPHATIC: Denies swollen, painful, enlarged glands. NEUROLOGICAL: Denies no numbness or tingling denies weakness. Denies headache. Denies altered mental status. Denies alteration in speech. PSYCHIATRIC: Denies stress, anxiety, alteration in sleep patterns, or depression. All other systems reviewed and negative. Physical Exam - Vital signs Vitals: Temp Pulse Resp BP Pulse Ox 97.9 F 86 16 129/81 H 99 06/26/18 23:49 06/26/18 23:49 06/26/18 23:49 06/26/18 23:49 06/26/18 23:49 - Notes Notes: PHYSICAL EXAMINATION: GENERAL: Appears well, healthy, well-nourished, no acute distress. HEAD: Normocephalic, atraumatic. EYES: PERRL, conjunctiva normal, all extraocular movements intact, sclera nonicteric ENT: Erythema and edema to ear canal. Tympanic membrane intact without erythema. Moist mucous membranes. NECK: Supple, no noticeable swelling, redness, rash. Normal range of motion. LUNGS: Equal breath sounds bilaterally and clear to auscultation. No wheezes rales or rhonchi. CARDIOVASCULAR: S1-S2, regular rate, regular rhythm. Radial pulses 2+, normal. ABDOMEN: Normoactive bowel sounds. Soft, nontender, no guarding, no rebound tenderness, and no masses palpated. EXTREMITIES: Normal strength and range of motion, no pitting or edema. No cyanosis. NEUROLOGICAL: Moves all extremities upon command. Strength 5/5 in all extremities. PSYCH: Normal mood, normal affect. SKIN: Warm, dry. No rash, lesions, ulcerations noted. Normal skin turgor. Course - Re-evaluation Re-evalutation: 06/27/18 00:19 Patient is a 28-year-old male who presents emergency department with ear pain. Findings on physical exam are consistent with otitis externa. He will be sent home with Ciprodex drops. I do not suspect he has any life-threatening etiologies at this time. His hearing loss is most likely due to the inflammation in his ear canal. I do not suspect the patient has mastoiditis. Verbal discharge instructions were given to the patient. He verbalized understanding. He is stable for discharge. - Vital Signs Vital signs: Temp Pulse Resp BP Pulse Ox 98.6 F 72 18 124/73 97 06/27/18 00:36 06/27/18 00:36 06/27/18 00:36 06/27/18 00:36 06/27/18 00:36 Discharge - Discharge Clinical Impression: Ear pain, left Condition: Stable Disposition: HOME, SELF-CARE Additional Instructions: You have been seen in the emergency department for left ear pain. You have an infection in your ear canal. You have been given eardrops here in the emergency department. Please place 4 drops to your affected ear twice a day for 7 days. You may take Tylenol 1000 mg and Motrin 600 mg every 6 hours as needed for the pain. For the next 2 days please take the Motrin and Tylenol every 6 hours [id number]. If you feel your pain is getting worse, he will up a fever greater than 100.4 F, any symptoms that are worrisome to you, please return to the emergency department
[2018-06-27] MEDS ORDERED: ACETAMINOPHEN 325 MG TABLET PO ONE (00:06)
[2018-06-27] MEDS ORDERED: IBUPROFEN 600 MG TABLET PO ONE (00:06)
[2018-06-27] MEDS ORDERED: CIPROFLOXACIN HCL/DEXAMETH OTIC DROP 7.5 ML AS ONE (00:27)
[2018-06-27 00:37] VITALS: BP 124/73
== END 2018-06-27 00:37 | disposition home or self-care (01) ==
LOC: ER 23:13
DX: H92.02 Otalgia, left ear (principal); H66.90 Otitis media, unspecified, unspecified ear; Z88.1 Allergy status to other antibiotic agents; Z88.0 Allergy status to penicillin; Z88.2 Allergy status to sulfonamides; Z91.013 Allergy to seafood
CPT/HCPCS: 99282; J3490

== ENCOUNTER 2018-11-21 20:52 | Emergency (ER) | payer SELFPAY ==
[2018-11-21 21:04] VITALS: BP 130/80
== END 2018-11-21 21:30 | disposition left against medical advice (07) ==
LOC: ER 20:52
DX: Z53.21 Procedure and treatment not carried out due to patient leaving prior to being seen by health care provider (principal)
CPT/HCPCS: 36415; 80053; 82550; 82553; 84484; 85025